=== PATIENT | male | born 1975 | race Two or more races ===

== ENCOUNTER 2024-02-25 04:00 | Emergency (ER) | payer OTHER ==
[~2024-02-25] VITALS: Ht 180.3 cm; Wt 71.2 kg
[2024-02-25] MEDS ORDERED: HYDROCODONE/CHLORPHEN P-STIREX 5 ML ML PO STA (05:30)
[2024-02-25] MEDS ORDERED: BENZONATATE 100 MG CAPSULE PO STA (05:31)
[2024-02-25 05:44] LABS: HEMATOCRIT 43.6 % (39.0-48.0); HEMOGLOBIN 15.4 g/dL (13-16.00); MEAN CORPUSCULAR HEMOGLOBIN 32.1 pg (27.00-32.0); MEAN CORPUSCULAR HGB CONC 35.2 g/dl (32.0-36.0); PLATELET COUNT 249 K/uL (150-450); RED BLOOD COUNT 4.79 M/uL (4.00-6.00); RED CELL DISTRIBUTION WIDTH 12.5 % (11.5-14.5)
== END 2024-02-25 06:23 | disposition home or self-care (01) ==
LOC: ER 04:02
DX: J10.1 Influenza due to other identified influenza virus with other respiratory manifestations (principal); J06.9 Acute upper respiratory infection, unspecified